=== PATIENT | male | born 1970 | race Caucasian/White ===

== ENCOUNTER 2016-07-18 12:59 | Emergency (ER) | payer OTHER ==
[~2016-07-18] VITALS: Ht 185.4 cm; Wt 78.1 kg
[~2016-07-18 12:59] MED LIST: NOHOMEMEDS
[2016-07-18 14:10] LABS: ADD MIUA? YES; BILIRUBIN NEGATIVE; BLOOD MODERATE; COLOR YELLOW ((YELLOW)); GLUCOSE (STRIP) NEGATIVE; KETONES NEGATIVE; LEUKOCYTES NEGATIVE; NITRITE NEGATIVE; PROTEIN (STRIP) 100; SPECIFIC GRAVITY 1.023 (1.000-1.030); UROBILINOGEN 0.2 MG/DL (0.2-1.0)
[2016-07-18 14:13] LABS: BACTERIA NONE SEEN /HPF; EPITHELIAL CELLS RARE /HPF; HYALINE CASTS 0-5 /LPF; MUCUS 2+ /LPF; RED BLOOD CELLS TNTC /HPF (0-5); UCUL ADDED? NO; WHITE BLOOD CELLS 0-5 /HPF (0-5)
[2016-07-18 16:32] LABS: HEMATOCRIT 35.6 % (38.0-50.0); MCHC 33.1 G/DL (30.0-36.0); MCV 87.5 FL (86-99); MEAN PLAT.VOLUME 10.3 uM^3 (9.0-12.4); PLATELET COUNT 323 K/uL (156-360); RBC DIS.WIDTH-CV 14.2 % (11.8-14.6); RBC DIS.WIDTH-SD 45.3 % (39-53); RED BLOOD COUNT 4.07 M/uL (4.00-5.50); WHITE BLOOD COUNT 6.5 K/uL (4.1-10.2)
[2016-07-18 16:34] LABS: CHLORIDE 100 mEq/L (99-109); POTASSIUM 4.1 mEq/L (3.7-5.4); SODIUM 136 mEq/L (136-147)
[2016-07-18 16:36] LABS: GLUCOSE 104 mg/dL (70-99)
[2016-07-18 16:37] LABS: INTER. NORMALIZED RATIO 1.2
[2016-07-18 16:38] LABS: ANION GAP 11 MEQ/L (2-14); TOTAL BILIRUBIN 0.7 mg/dL (0.0-1.0)
[2016-07-18 16:40] LABS: ALKALINE PHOSPHATASE 99 IU/L (3-129); GFR ESTIMATE (CALCULATED) > 59 mL/min/
[2016-07-18 16:41] LABS: UREA NITROGEN (BUN) 23 mg/dL (9-23)
[2016-07-18 18:17] VITALS: BP 132/79
[2016-07-19] MEDS ORDERED: COQ-10100 MG PO (11:11)
== END 2016-07-18 18:18 | disposition home or self-care (01) ==
LOC: EME 12:59
PROVIDERS: Nurse Practitioner Family; Physician Assistant
DX: S39.011A Strain of muscle, fascia and tendon of abdomen, initial encounter (principal); X50.0XXA Overexertion from strenuous movement or load, initial encounter; Y99.0 Civilian activity done for income or pay; C79.51 Secondary malignant neoplasm of bone; R31.9 Hematuria, unspecified; Z87.891 Personal history of nicotine dependence
CPT/HCPCS: 74176; 76705; 80053; 81003; 85027; 85610; 99281; 99285

== ENCOUNTER → 2016-07-20 | Outpatient (CLI) | payer OTHER ==
[~2016-07-20] MED LIST changes: +COQ-10100 MG PO
== END | disposition home or self-care (01) ==
LOC: OPR 09:43 → EDSTATUS 10:00
DX: C79.9 Secondary malignant neoplasm of unspecified site (principal)
CPT/HCPCS: 77012; 88305; J3010

== ENCOUNTER → 2016-08-14 | Outpatient (CLI) | payer OTHER ==
[~2016-08-14] MED LIST changes: +PERCOCET 5/31 TABLET PO; +TRAMADOL HCL50 MG PO
[2016-08-14 10:41] LABS: EOSINOPHIL (%) 5.5 % (0-5); EOSINOPHIL COUNT 0.2 K/uL (0-0.3); HEMATOCRIT 28.5 % (38.0-50.0); IMMATURE GRANULOCYTE (%) 0.8 % (0.0-0.7); INSTRUMENT ABS NEUTROPHIL CT 2.4 K/uL; LYMPHOCYTE COUNT 0.8 K/uL (1.0-2.8); MCH 27.7 PG (29.0-34.0); MCHC 30.9 G/DL (30.0-36.0); MCV 89.6 FL (86-99); MEAN PLAT.VOLUME 9.4 uM^3 (9.0-12.4); MONOCYTE (%) 8.2 % (3-12); MONOCYTE COUNT 0.3 K/uL (0-0.8); NEUTROPHIL (%) 63.6 % (45-76); NEUTROPHIL COUNT 2.4 K/uL (1.8-6.4); PLATELET COUNT 245 K/uL (156-360); RBC DIS.WIDTH-CV 14.5 % (11.8-14.6); RBC DIS.WIDTH-SD 46.6 % (39-53); RED BLOOD COUNT 3.18 M/uL (4.00-5.50); WHITE BLOOD COUNT 3.8 K/uL (4.1-10.2)
== END | disposition home or self-care (01) ==
LOC: EDSTATUS 08-03 09:00 → OPR 08-03 09:00
PROVIDERS: Internal Medicine Hematology & Oncology
DX: C90.30 Solitary plasmacytoma not having achieved remission (principal)
CPT/HCPCS: 77012; 85025; 85999; J3010

== ENCOUNTER → 2017-01-01 | Outpatient (CLI) | payer OTHER ==
[~2017-01-01] VITALS: Ht 185.4 cm; Wt 88.0 kg
[~2017-01-01] MED LIST changes: +ACYCLOVIR800 MG PO; +DECADRON4 MG PO; +ROXICODONE5 MG PO; +XARELTO20 MG PO
[2017-01-01 09:03] LABS: EOSINOPHIL (%) 0 % (0-5); HEMATOCRIT 36.1 % (38.0-50.0); IMMATURE GRANULOCYTE (%) 0.6 % (0.0-0.7); IMMATURE GRANULOCYTE COUNT 0.1 K/uL; INSTRUMENT ABS NEUTROPHIL CT 7.9 K/uL; LYMPHOCYTE COUNT 0.3 K/uL (1.0-2.8); MCHC 34.1 G/DL (30.0-36.0); MCV 90.9 FL (86-99); MEAN PLAT.VOLUME 8.6 uM^3 (9.0-12.4); MONOCYTE (%) 4.9 % (3-12); MONOCYTE COUNT 0.4 K/uL (0-0.8); NEUTROPHIL COUNT 7.9 K/uL (1.8-6.4); RBC DIS.WIDTH-CV 13.9 % (11.8-14.6); RBC DIS.WIDTH-SD 45.6 % (39-53); RED BLOOD COUNT 3.97 M/uL (4.00-5.50); WHITE BLOOD COUNT 8.7 K/uL (4.1-10.2)
[2017-01-01 09:15] LABS: PLATELET COUNT 284 K/uL (156-360)
[2017-01-01 09:24] LABS: INTER. NORMALIZED RATIO 1.1; PROTHROMBIN TIME 11.7 SEC (10.2-12.9)
[2017-01-01 09:27] LABS: PTT 29.7 SEC (25-37)
[2017-01-01 09:59] LABS: ABS NEUTROPHIL COUNT 7.8; EOSINOPHIL ABS CT 0; PLAT.SUFFICIENCY ADEQUATE
[2017-01-05 11:06] LABS: NUMBER OF MARKERS 24; SPECIMEN VIABILITY 94
== END | disposition home or self-care (01) ==
LOC: OPR 08:11 → EDSTATUS 09:00 → OPR 09:00
PROVIDERS: Internal Medicine Hematology & Oncology
PROC: 07DR3ZX Extraction of Iliac Bone Marrow, Percutaneous Approach, Diagnostic (ICD-10-PCS; principal; 2017-01-01)
DX: D47.2 Monoclonal gammopathy (principal); C90.00 Multiple myeloma not having achieved remission
CPT/HCPCS: 77012; 85007; 85025; 85610; 85730; J3010